=== PATIENT | female | born 1990 | race Hispanic/Latino ===

== ENCOUNTER 2022-11-22 05:03 | Day surgery (SDC) | payer MEDICAID, OTHER ==
[2022-11-22 05:38] VITALS: BMI 33.0
[2022-11-22] MEDS ORDERED: hydrALAZINE 20 MG/ML VIAL SLOW IVP PRN (07:12)
== END 2022-11-22 07:45 | disposition home or self-care (01) ==
LOC: CSHLD/OP 05:03
PROVIDERS: ATTEND Family Medicine
DX: O47.1 False labor at or after 37 completed weeks of gestation (principal); Z3A.39 39 weeks gestation of pregnancy
CPT/HCPCS: 99283

== ENCOUNTER 2022-11-23 02:15 | Inpatient (IN) | payer OTHER ==
[2022-11-23 02:49] VITALS: BMI 33.0
[2022-11-23] MEDS ORDERED: fentaNYL/Ropivacaine Epidural 100 ML ONE (03:23)
[2022-11-23] MEDS ORDERED: Penicillin G Potassium 5 MILL.UNITS VIAL ONE (03:23)
[2022-11-23] MEDS ORDERED: Oxytocin 30 units/NS 500 ML 500 ML IV SCH (03:30)
[2022-11-23] MEDS ORDERED: Promethazine HCl 25 MG/ML VIAL IM PRN ×4 (03:30→14:56)
[2022-11-23] MEDS ORDERED: Lidocaine 1% (PF) 30 ML VIAL SC PRN (03:30)
[2022-11-23] MEDS ORDERED: Ondansetron PF 4 MG/2 ML Vial IVP PRN ×4 (03:30→14:56)
[2022-11-23] MEDS ORDERED: Penicillin G Potassium 5 MILL.UNITS in Sodium Chloride 0.9% 100 ML IVPB SCH (03:30)
[2022-11-23] MEDS ORDERED: hydrALAZINE 20 MG/ML VIAL SLOW IVP PRN ×2 (03:30→14:56)
[2022-11-23] MEDS ORDERED: Oxytocin 30 units/NS 500 ML 500 ML IVPB SCH (03:30)
[2022-11-23 03:45] LABS: Hematocrit 38.5 % (34.9-44.5); Hemoglobin 12.8 g/dL (12.0-15.5); Mean Corpuscular HGB CONC 33.2 g/dL (32.0-36.0); Mean Corpuscular Hemoglobin 28.8 pg (27.0-33.0); Mean Corpuscular Volume 86.7 fl (81.6-98.3); Mean Platelet Volume 9.1 fl (7.4-10.4); Platelet Count 296 10x3/uL (150-450); RBC Distribution Width 12.6 % (11.5-14.5); Red Blood Cell (RBC) Count 4.44 10x6/uL (3.90-5.03)
[2022-11-23 04:02] LABS: Syphilis Antibody Nonreactive (Nonreactive); Syphilis Antibody Index 0.04 S/CO (<1.00 Non-Reactive)
[2022-11-23] MEDS ORDERED: ePHEDrine Sulfate 50 MG/10 ML VIAL SLOW IVP PRN (04:35)
[2022-11-23] MEDS ORDERED: diphenhydrAMINE 50 MG/ML VIAL IVP PRN ×2 (04:35→13:29)
[2022-11-23] MEDS ORDERED: Lactated Ringer's 500 ML IV PRN (04:35)
[2022-11-23] MEDS ORDERED: Moisturizing Cream (Eucerin) 113 GM JAR TOP PRN ×2 (04:35→13:29)
[2022-11-23] MEDS ORDERED: Acetaminophen 325 MG TAB PO PRN (04:35)
[2022-11-23] MEDS ORDERED: Naloxone HCl 0.4 mg/ml Vial IVP PRN ×4 (04:35→13:29)
[2022-11-23] MEDS ORDERED: Communication Order-Pharmacy FS SCH ×2 (04:45→13:30)
[2022-11-23] MEDS ORDERED: fentaNYL 2 mcg/Ropivacaine 0.2% Epidural 100 ML CADD EPIDURAL SCH (04:45)
[2022-11-23 04:49] LABS: HBSAg Index 0.13 S/CO (0-0.99); Hep B Surf Ag - L&D Non-Reactive S/CO (NonReactive)
[2022-11-23] MEDS: Penicillin G 2.5 MILL.units 2.5 MILL.UNITS in Premix Bag 1 BAG IVPB SCH ×2 (07:30→17:28)
[2022-11-23] MEDS ORDERED: Dexamethasone 4 mg/ml Vial ONE (11:06)
[2022-11-23] MEDS ORDERED: ePHEDrine Sulfate 50 MG/10 ML VIAL ONE (11:06)
[2022-11-23] MEDS ORDERED: Oxytocin 10 UNITS/ML VIAL ONE (11:06)
[2022-11-23] MEDS ORDERED: PHENYLEPHRINE-NS 100 MCG/ML 10 ML SYRINGE ONE (11:06)
[2022-11-23] MEDS ORDERED: Ketorolac Tromethamine 30 MG/ML VIAL ONE (11:06)
[2022-11-23] MEDS ORDERED: Morphine PF 10 MG/10 ML VIAL ONE (11:06)
[2022-11-23] MEDS ORDERED: Ondansetron PF 4 MG/2 ML Vial ONE (11:06)
[2022-11-23] MEDS ORDERED: Chloroprocaine 3% PF 20 ML VIAL ONE (11:07)
[2022-11-23] MEDS ORDERED: CEFAZOLIN 2 GM VIAL ONE (11:13)
[2022-11-23] MEDS ORDERED: Azithromycin 500 MG VIAL ONE (11:13)
[2022-11-23] MEDS ORDERED: Famotidine/PF 20 mg/2ml Vial ONE (11:30)
[2022-11-23] MEDS ORDERED: Carboprost 250 MCG/ML AMP ONE (12:03)
[2022-11-23] MEDS ORDERED: Methylergonovine 0.2 MG/ML VIAL ONE ×2 (12:03→12:12)
[2022-11-23 12:20] LABS: pH (Cord, venous) 7.326 (7.250-7.350)
[2022-11-23] MEDS ORDERED: Bupivacaine 0.25% HCL 30 ML VIAL ONE (13:00)
[2022-11-23] MEDS ORDERED: Fentanyl 50 MCG/1 ML VIAL SLOW IVP PRN (13:29)
[2022-11-23] MEDS ORDERED: Promethazine HCl 25 MG SUPP PR PRN (13:29)
[2022-11-23] MEDS ORDERED: Meperidine HCl/PF 25 MG/ML VIAL SLOW IVP PRN (13:29)
[2022-11-23] MEDS ORDERED: Ondansetron HCl/PF 4 MG/2 ML Vial IVP PRN (13:29)
[2022-11-23] MEDS ORDERED: Naloxone HCl 0.4 mg/ml Vial IV PRN (13:29)
[2022-11-23] MEDS ORDERED: Ketorolac Tromethamine 30 MG/ML VIAL IVP PRN (13:29)
[2022-11-23] MEDS ORDERED: Ketorolac Tromethamine 30 MG/ML VIAL IVP SCH (13:30)
[2022-11-23] MEDS ORDERED: Meperidine HCl/PF 25 MG/ML VIAL ONE (13:37)
[2022-11-23] MEDS ORDERED: fentaNYL 50 mcg/mL 1 mL Vial SLOW IVP PRN (14:30)
[2022-11-23] MEDS ORDERED: diphenhydrAMINE 25 MG CAP PO PRN (14:56)
[2022-11-23] MEDS ORDERED: Bisacodyl 10 MG SUPP PR PRN (14:56)
[2022-11-23] MEDS ORDERED: Boostrix 0.5 ML (Tdap) VIAL (>/=7 yrs of age) IM ONE (14:56)
[2022-11-23] MEDS ORDERED: HYDROcodone/Acetaminophen 5/325 mg Tablet PO PRN (14:56)
[2022-11-23] MEDS: Ketorolac Tromethamine 30 MG/ML VIAL IVP SCH (20:05)
[2022-11-23] MEDS: Ferrous Sulfate 325 MG TAB PO SCH (21:00)
[2022-11-23] MEDS: Docusate 100 MG CAP PO SCH (22:07)
[2022-11-23] MEDS: Simethicone Chewable 80 MG TAB PO PRN (22:07)
[2022-11-24] MEDS ORDERED: Meperidine HCl/PF 25 MG/ML VIAL IM PRN (01:30)
[2022-11-24] MEDS: Ketorolac Tromethamine 30 MG/ML VIAL IVP SCH ×3 (02:04→14:10)
[2022-11-24] MEDS: Simethicone Chewable 80 MG TAB PO PRN (02:07)
[2022-11-24] MEDS: HYDROcodone/Acetaminophen 5/325 mg Tablet PO PRN ×5 (02:54→21:39)
[2022-11-24 03:46] LABS: Hematocrit 31.7 % (34.9-44.5); Hemoglobin 10.5 g/dL (12.0-15.5); Mean Corpuscular HGB CONC 33.1 g/dL (32.0-36.0); Mean Corpuscular Volume 87.6 fl (81.6-98.3); Platelet Count 236 10x3/uL (150-450); RBC Distribution Width 12.2 % (11.5-14.5); Red Blood Cell (RBC) Count 3.62 10x6/uL (3.90-5.03); White Blood Cell (WBC) Count 20.5 10x3/uL (3.5-10.5)
[2022-11-24] MEDS: Prenatal Vitamin 1 TAB PO SCH (08:17)
[2022-11-24] MEDS: Docusate 100 MG CAP PO SCH ×2 (08:17→21:40)
[2022-11-24] MEDS: Ferrous Sulfate 325 MG TAB PO SCH (08:17)
[2022-11-24] MEDS: Ibuprofen 800 MG TAB PO SCH (21:38)
[2022-11-25] MEDS: HYDROcodone/Acetaminophen 5/325 mg Tablet PO PRN ×4 (03:39→21:12)
[2022-11-25] MEDS: Ibuprofen 800 MG TAB PO SCH ×3 (05:27→21:11)
[2022-11-25] MEDS: Ferrous Sulfate 325 MG TAB PO SCH ×3 (07:33→19:31)
[2022-11-25] MEDS: Docusate 100 MG CAP PO SCH ×2 (08:20→21:11)
[2022-11-25] MEDS: Prenatal Vitamin 1 TAB PO SCH (08:20)
[2022-11-25] MEDS: Simethicone Chewable 80 MG TAB PO PRN ×2 (08:21→21:11)
[2022-11-26] MEDS: HYDROcodone/Acetaminophen 5/325 mg Tablet PO PRN ×2 (02:47→08:01)
[2022-11-26] MEDS: Simethicone Chewable 80 MG TAB PO PRN (05:18)
[2022-11-26] MEDS: Ibuprofen 800 MG TAB PO SCH (05:18)
[2022-11-26] MEDS: Ferrous Sulfate 325 MG TAB PO SCH (07:13)
[2022-11-26] MEDS: Docusate 100 MG CAP PO SCH (08:01)
[2022-11-26] MEDS: Prenatal Vitamin 1 TAB PO SCH (08:01)
[2022-11-26 16:49] VITALS: BP 120/80; TEMP 98.1
== END 2022-11-26 12:45 | disposition home or self-care (01) | DRG 788 ==
LOC: CSHLD/OP 02:15 → CSHLD 02:43 → CSHPP 15:00
PROVIDERS: ADMIT Family Medicine; ATTEND Family Medicine
PROC: 10D00Z1 Extraction of Products of Conception, Low, Open Approach (ICD-10-PCS; principal; 2022-11-23)
PROC: 10907ZC Drainage of Amniotic Fluid, Therapeutic from Products of Conception, Via Natural or Artificial Opening (ICD-10-PCS; 2022-11-23)
PROC: 10H07YZ Insertion of Other Device into Products of Conception, Via Natural or Artificial Opening (ICD-10-PCS; 2022-11-23)
PROC: 3E0P05Z Introduction of Adhesion Barrier into Female Reproductive, Open Approach (ICD-10-PCS; 2022-11-23)
DX: O76 Abnormality in fetal heart rate and rhythm complicating labor and delivery (principal); Z3A.39 39 weeks gestation of pregnancy; Z37.0 Single live birth; O99.824 Streptococcus B carrier state complicating childbirth; O62.2 Other uterine inertia
CPT/HCPCS: 51702; 82805; 85027; 86780; 86850; 86900; 86901; 87340; 99283; 99285; J1100; J1885; J2175; J2210; J2274; J2401; J2405; J2540; J2590; J3490; S0020; S0028